=== PATIENT | female | born 1970 | race Caucasian/White ===

== ENCOUNTER 2023-07-29 05:54 | Emergency (ER) | payer BC, SELFPAY ==
[2023-07-29] VITALS (7 sets, daily range): BP systolic 111–132; BP diastolic 67–80; PULSE 67–110; RESP 16–18; TEMP 36.4–36.6; O2SAT 94–100; BMI 25.2
--- NOTE | 2023-07-29 | ECG_ITS ---
Test Reason : DIZZINESS Blood Pressure : / mmHG Vent. Rate : 067 BPM Atrial Rate : 067 BPM P-R Int : 128 ms QRS Dur : 070 ms QT Int : 378 ms P-R-T Axes : 055 018 033 degrees QTc Int : 399 ms Normal sinus rhythm Normal ECG No previous ECGs available Referred By: Generic ED Physician Electronically Signed By:JOHN OTOOLE MD
--- NOTE | ~2023-07-29 | XR_ITS ---
EXAMINATION: XR CHEST CLINICAL INFORMATION: Cough COMPARISON: None available. TECHNIQUE: Frontal view of the chest was obtained. FINDINGS: Slight bronchial thickening which can be seen in setting of infectious/inflammatory etiology. Left basilar atelectasis. No pneumothorax. Trachea is midline. Cardiac mediastinal silhouette is not enlarged. No large pleural effusion. Osseous structures are intact. Soft tissues are unremarkable. XR/XR chest 1V IMPRESSION: 1. Slight bronchial thickening which can be seen in setting of infectious/inflammatory etiology. 2. Left basilar atelectasis.
[2023-07-29] MEDS: Ondansetron ODT 4 MG TAB.RAPDIS TRANSLINGU (06:08)
[2023-07-29 06:26] LABS: MANUAL DIFF FLAG NO
[2023-07-29 06:27] LABS: Basophils Absolute Auto 0.1 X10*3/uL (0.0-0.2); Basophils Percent Auto 0.5 % (0-2); Eosinophils Absolute Auto 0.2 X10*3/uL (0.0-0.4); Eosinophils Percent Auto 2.1 % (0-4); Hematocrit 44.3 % (37.0-47.0); Hemoglobin 14.8 g/dl (12.0-16.0); Imm Gran Abs Auto 0.03 X10*3/uL (0.00-0.03); Imm Gran Pct Auto 0.3 % (0.0-0.4); Lymphocytes Absolute Auto 2.3 X10*3/uL (1.2-4.9); Lymphocytes Percent Auto 22.9 % (20-40); Mean Corpuscular HGB Conc 33.4 g/dl (31.0-35.0); Mean Corpuscular Hemoglobin 30.5 pg (27.0-33.0); Mean Corpuscular Volume 91.3 fL (80.0-98.0); Mean Platelet Volume 9.9 fL (9.4-12.3); Monocytes Absolute Auto 0.7 X10*3/uL (0.1-1.2); Monocytes Percent Auto 7.3 % (2-11); Neutrophils Absolute Auto 6.6 x10*3/uL (2.0-8.3); Neutrophils Percent Auto 66.9 % (45-73); Platelet Count 246 X10*3/uL (160-400); Red Blood Count 4.85 X10*6/uL (4.20-5.50); Red Cell Distribution Width 13.3 % (11.0-16.0); White Blood Count 9.9 X10*3/uL (4.8-10.8)
[2023-07-29 06:41] LABS: Alanine Aminotransferase 27 U/L (0-31); Albumin Level 4.4 g/dL (3.5-5.0); Alkaline Phosphatase 69 U/L (39-117); Anion Gap 14 (12-20); Aspartate Amino Transferase 23 U/L (5-31); Bilirubin Total 0.4 mg/dL (0.0-1.0); Blood Urea Nitrogen 11 mg/dL (9-16); Calcium 9.9 mg/dL (8.4-10.2); Carbon Dioxide 21 mmol/L (22-29); Chloride 104 mmol/L (96-108); Estimated Glomerular Filt Rate > 60; Glucose Random 122 mg/dL (60-115); Potassium 3.9 mmol/L (3.3-5.1); Sodium 135 mmol/L (135-145); Total Protein 7.6 g/dL (6.5-8.0)
--- NOTE | 2023-07-29 10:26 | PC.NURSE ---
Pt presents to ED from home, reports she cut an extended release Zyrtec pill and took it around 5 AM this morning for her cold/allergies. Pt reported within 15 mins she felt tremors, nausea, palpitations and overall unwell. Came into ED because she thought she was going to pass out. Reports the Zofran they gave her here has helped and her symptoms have resolved. Pt denies any CP, SOB, nausea, ABD pain. Alert and oriented, breathing even and unlabored, skin warm and dry. VSS. Pt does report cold since Monday with cough and increased mucous.
--- NOTE | 2023-07-29 10:43 | ED.GENADULT ---
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 Patient reports that this morning at approximately 445 she took a Mucinex, she cut it in half because yesterday when she took Mucinex it made her feel funny, today when she took it and cut it in half she got nausea, vomiting, diarrhea and felt like she was going to pass out she also experienced some palpitations. No shortness of breath or associated chest pain with this. Patient tells me now she is feeling fine in regards to that she has not having nausea, vomiting or diarrhea, no palpitations. She reports what is bothering her most is or upper respiratory infection. At this time denies chest pain, shortness of breath, nausea, vomiting, diarrhea, headache, vision changes, dizziness and weakness. Related Data Previous Rx's ?Medication ?Instructions ?Recorded albuterol sulfate 90 mcg/actuation 2 inh inhalation Q4-6H PRN 07/29/23 breath activated powder inhaler shortness of breath or wheezing #1 ea doxycycline hyclate 100 mg capsule 100 mg PO BID 10 days #20 caps 07/29/23 prednisone 20 mg tablet 40 mg (2 x 20 mg) PO DAILY 5 days 07/29/23 #10 tabs Allergies Allergy/AdvReac Type Severity Reaction Status Date / Time No Known Allergies Allergy Verified 07/29/23 06:04 Review of Systems Review of Systems: Yes all other systems are reviewed and are negative PMFSH Past Medical History Attestation statement: The following information was validated with the patient. Source: old records reviewed and nursing notes reviewed Social History Social History Smoked in Last 30 Days: No Use of substances other than those prescribed or required for medical reasons: Yes Substance Use Type: Marijuana Advance Directives: No Advance Directives Information Provided: No Do you have a plan to hurt others: No Plan Physical Exam ED Vital Signs: Vital Signs - 24 hr 07/29/23 06:01 07/29/23 10:19 07/29/23 11:03 Temperature 97.5 F 98 F Pulse Rate 78 70 67 Respiratory Rate 17 18 18 Blood Pressure 132/79 111/71 Pulse Oximetry 100 96 Oxygen Delivery Method Room Air Room Air 07/29/23 12:04 07/29/23 12:05 07/29/23 12:06 Temperature Pulse Rate 95 82 110 H Respiratory Rate Blood Pressure 121/67 116/71 121/70 Pulse Oximetry 97 96 94 Oxygen Delivery Method Room Air Room Air Room Air BMI result Body Mass Index 25.2 vss Appearance: Alert.? Oriented X3.? No acute distress.? Head: Normocephalic, atraumatic, no step-offs or deformities Eyes: Pupils equal, round and reactive to light.? Neck: Normal inspection.? Neck supple.? CVS: Normal heart rate and rhythm.? Pulses normal.? Respiratory: No respiratory distress.? Breath sounds diffuse wheezing throughout.? Skin: Skin warm and dry.? Normal skin color.? Normal skin turgor.? Extremities: No lower extremity edema.? No calf ttp. 5/5 strength to bilateral upper and lower extremities Neuro: Oriented X 3.? No motor deficit.? No sensory deficit. CN 2-12 intact Course Reevaluation(s) Reevaluation #1: CBC unremarkable. Chemistry no acute findings requiring intervention. Troponin negative, EKG nonischemic. Urine toxicology pending. Serology pending. Patient received Decadron and breathing treatment. Plan is for discharge home with antibiotics. Time: 11:27 Reevaluation #2: Forty bronchial wall thickening which can be seen in the setting of infectious/inflammatory etiology. Left-sided basilar atelectasis. Time: 12:32 Reevaluation #3: Educated patient on diagnosis and treatment plan, answered all question, patient verbalizes understanding. At this time patient will be discharged home, advised to return with new or worsening symptoms. Educated on worrisome signs and symptoms and when to return. At this time I feel comfortable discharge home. Time: 12:45 Medications Administered Discontinued Medications Generic Name Dose Route Start Last Admin Trade Name Freq PRN Reason Stop Dose Admin Albuterol/Ipratropium 3 ml 07/29/23 10:58 07/29/23 11:03 Albuterol/Iprat 2.5/0.5mg 3 Ml Ampul.Neb INHALE 07/29/23 10:59 3 ml ONCE ONE Administration Dexamethasone Sodium Phosphate 10 mg 07/29/23 10:46 07/29/23 11:17 Dexamethasone Sod Phosphate 10 Mg/Ml Vial IVPUSH 07/29/23 10:47 10 mg ONCE ONE Administration Ondansetron HCl 4 mg 07/29/23 06:06 07/29/23 06:08 Ondansetron Odt 4 Mg Tab.Rapdis TRANSLINGU 07/29/23 06:07 4 mg ONCE ONE Administration Medical Decision Making Medical Decision Making [facility] Narrative: 1035 52 year old female presents w/ URI sx X 3-4 days and today after taking a cut up mucnix pill started to feel like she was going to pass out and had GI upset. + sick contacts at work PE with significant wheezing in all lung garcia. History and physical exam concerning for bronchitis versus viral illness will rule out flu versus COVID versus RSV. Unlikely PE, pneumonia, ACS, dissection, acute respiratory distress. Patient likely had GI upset and near-syncope secondary to symptoms experienced after taking a broken up Mucinex, the caot that is protective to the GI tract was likely broken and cause the symptoms. Unlikely allergic reaction or anaphylaxis. No signs of acute threat to airway. Plan viral testing, basic labs, FOOTE. Will do a bronch protocol as patient has wheezing and will give Decadron. Differential Diagnosis Differential Diagnoses: The differential diagnosis associated with the presentation includes History and physical exam concerning for bronchitis versus viral illness will rule out flu versus COVID versus RSV. Unlikely PE, pneumonia, ACS, dissection, acute respiratory distress. Patient likely had GI upset and near-syncope secondary to symptoms experienced after taking a broken up Mucinex, the caot that is protective to the GI tract was likely broken and cause the symptoms. Unlikely allergic reaction or anaphylaxis. No signs of acute threat to airway. Admission/Observation Consideration of admission/observation: Escalation of care including admission/observation considered Considered but not needed Lab Data [facility] Lab Attestation statement: I reviewed the patient's lab results. 07/29/23 06:19 07/29/23 06:20 Labs: Lab Results 07/29/23 07/29/23 07/29/23 Range/Units 06:19 06:20 11:22 WBC 9.9 (4.8-10.8) X10*3/uL RBC 4.85 (4.20-5.50) X10*6/uL Hgb 14.8 (12.0-16.0) g/dl Hct 44.3 (37.0-47.0) % MCV 91.3 (80.0-98.0) fL MCH 30.5 (27.0-33.0) pg MCHC 33.4 (31.0-35.0) g/dl RDW 13.3 (11.0-16.0) % Plt Count 246 (160-400) X10*3/uL MPV 9.9 (9.4-12.3) fL Immature Gran % (Auto) 0.3 (0.0-0.4) % Neut % (Auto) 66.9 (45-73) % Lymph % (Auto) 22.9 (20-40) % Bulloch % (Auto) 7.3 (2-11) % Eos % (Auto) 2.1 (0-4) % Baso % (Auto) 0.5 (0-2) % Lymph # (Auto) 2.3 (1.2-4.9) X10*3/uL Bulloch # (Auto) 0.7 (0.1-1.2) X10*3/uL Eos # (Auto) 0.2 (0.0-0.4) X10*3/uL Baso # (Auto) 0.1 (0.0-0.2) X10*3/uL Abs Immat Gran (auto) 0.03 (0.00-0.03) X10*3/uL Absolute Neuts (auto) 6.6 (2.0-8.3) x10*3/uL Absolute Nucleated RBC 0.000 (0.0-0.012) X10*3/uL Nucleated RBC % (auto) 0.0 (0.0-0.2) /100WBC Sodium 135 (135-145) mmol/L Potassium 3.9 (3.3-5.1) mmol/L Chloride 104 (96-108) mmol/L Carbon Dioxide 21 L (22-29) mmol/L Anion Gap 14 (12-20) BUN 11 (9-16) mg/dL Creatinine 0.72 (0.5-1.4) mg/dL Estim Creat Clear Calc 70.0 Estimated GFR > 60 Random Glucose 122 H (60-115) mg/dL Calcium 9.9 (8.4-10.2) mg/dL Total Bilirubin 0.4 (0.0-1.0) mg/dL AST 23 (5-31) U/L ALT 27 (0-31) U/L Alkaline Phosphatase 69 (39-117) U/L Troponin I High Sens < 2.7 (<3.5-17.0) ng/L Total Protein 7.6 (6.5-8.0) g/dL Albumin 4.4 (3.5-5.0) g/dL Urine Opiates Screen Not Detected (Not Detect) Ur Buprenorphine Scrn Not Detected (Not Detect) ng/mL Ur Oxycodone Screen Not Detected (Not Detect) ng/mL Urine Methadone Screen Not Detected (Not Detect) ng/mL Urine Fentanyl Screen Not Detected (Not Detect) Ur Barbiturates Screen Not Detected (Not Detect) Ur Phencyclidine Scrn Not Detected (Not Detect) Ur Amphetamines Screen Not Detected (Not Detect) U Benzodiazepines Scrn Not Detected (Not Detect) Urine Cocaine Screen Not Detected (Not Detect) U Marijuana (THC) Screen Not Detected (Not Detect) Influenza Type A (PCR) NEGATIVE (Negative) Influenza Type B (PCR) NEGATIVE (Negative) RSV RNA Qual (PCR) NEGATIVE (Negative) SARS-CoV-2 RNA (RT-PCR) NEGATIVE (Negative) Independent Interpretation I performed an independent interpretation of an: EKG (Vent. Rate : 067 BPM Atrial Rate : 067 BPM P-R Int : 128 ms QRS Dur : 070 ms QT Int : 378 ms P-R-T Axes : 055 018 033 degrees QTc Int : 399 ms Normal sinus rhythm Normal ECG No previous ECGs available) and Plain X-Ray Radiology Impression Discussion of test interpretation with radiology: I have reviewed the radiologist's reading. Independent Historian Clinical information obtained from an independent historian. History obtained from or confirmed by: Spouse Prescription Management I considered prescription management with: Antibiotic and Other (steroids, albuterol ) Chronic Conditions Patient?s care impacted by: Other (denies ) Critical Care Time Critical Care Time Critical Care Time: Yes Total Critical Care Time: 35 Attestation: I attest to this time spent taking care of the patient, obtaining history, physical, reviewing labs, imaging, speaking to my attending, specialist or hospitalist. Discharge Plan Discharge Clinical Impression: Acute bronchitis, Nausea & vomiting Patient Disposition: Home, Self-Care Instructions: Acute Bronchitis (ED), Acute Nausea and Vomiting (ED), Wheezing (ED) Additional Instructions: Take your medications as prescribed. If you were prescribed antibiotics today, it is important that you take your medication to their entirety, do not skip any doses, do not finish them early. Follow-up with your primary care provider this week. Return to the emergency department with new or worsening symptoms. Such as fevers, chills, chest pain, shortness of breath, nausea, vomiting, dizziness, headache, vision changes, lethargy In case of emergency call 911 XR/XR chest 1V IMPRESSION: 1. Slight bronchial thickening which can be seen in setting of infectious/inflammatory etiology. 2. Left basilar atelectasis. Prescriptions: New doxycycline hyclate 100 mg capsule 100 mg PO BID 10 Days Qty: 20 0RF prednisone 20 mg tablet 40 mg PO DAILY 5 Days Qty: 10 0RF albuterol sulfate 90 mcg/actuation aerosol powdr breath activated 2 inh inhalation Q4-6H PRN (Reason: shortness of breath or wheezing) Qty: 1 0RF Referrals: Rosales Camp MD [Primary Care Provider] - 2 days Stand Alone Forms: Work/School Release Print Language: Croatian
[2023-07-29] MEDS: Albuterol/Iprat 2.5/0.5MG 3 ML AMPUL.NEB INHALE (11:03)
[2023-07-29 11:08] LABS: Troponin-I High Sensitivity < 2.7 ng/L (<3.5-17.0)
[2023-07-29] MEDS: dexAMETHasone sod phosphate 10 MG/ML VIAL IVPUSH (11:17)
[2023-07-29 12:00] LABS: Amphetamine Screen Urine Not Detected (Not Detect); Barbiturates, Urine Not Detected (Not Detect); Benzodiazepines Screen Urine Not Detected (Not Detect); Buprenorphine Scr Not Detected (Not Detect); Cannabinoid Screen Urine Not Detected (Not Detect); Cocaine Screen Urine Not Detected (Not Detect); Fentanyl, urine Not Detected (Not Detect); Methadone Screen, Urine Not Detected (Not Detect); Opiate Screen Urine Not Detected (Not Detect); Oxycodone Screen Urine Not Detected (Not Detect); Phencyclidine Screen Urine Not Detected (Not Detect)
[2023-07-29 12:25] LABS: Influenza A PCR NEGATIVE (Negative); Influenza B PCR NEGATIVE (Negative); Resp Syncy Virus RNA Qual PCR NEGATIVE (Negative); SARS COV2 PCR INHOUSE NEGATIVE (Negative)
== END 2023-07-29 13:08 | disposition home or self-care (01) ==
PROVIDERS: Physician Assistant; Emergency Provider Emergency Medicine; PCP Internal Medicine
DX: J40 Bronchitis, not specified as acute or chronic (principal); R05.9 Cough, unspecified; R53.83 Other fatigue; R11.2 Nausea with vomiting, unspecified; Z79.899 Other long term (current) drug therapy
CPT/HCPCS: 0241U; 36415; 71045; 80053; 80307; 84484; 85025; 93005; 94640; 99284; 99285; J1100

== ENCOUNTER → 2023-07-29 06:11 | Outpatient (BNV) | payer BC, SELFPAY | PROVIDERS: Emergency Provider Emergency Medicine; PCP Internal Medicine; Visit Provider Internal Medicine Cardiovascular Disease | DX: R42 Dizziness and giddiness (principal) | CPT/HCPCS: 93010 ==